=== PATIENT | female | born 1955 | race Caucasian/White ===

== ENCOUNTER 2020-03-04 13:49 | Emergency (ER) | payer BC ==
[~2020-03-04] VITALS: Ht 172.7 cm; Wt 89.5 kg
[2020-03-04] MEDS ORDERED: ziprasidone 20mg capsule PO SCH (15:05)
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
[2020-03-04 15:51] LABS: CLARITY,URINE CLEAR (Clear); COLOR,URINE STRAW (Yellow); GLUCOSE, URINE NEGATIVE (Neg); KETONES,URINE NEGATIVE (Neg); LEUKOCYTE ESTERASE ,URINE NEGATIVE (Neg); NITRITES, URINE NEGATIVE (Neg); OCCULT BLOOD,URINE NEGATIVE (Neg); PROTEIN,URINE NEGATIVE (Neg); UROBILINOGEN,URINE 0.2 E.U/dL (0.2-1.0)
[2020-03-04 15:53] LABS: UA COLLECTION TYPE VOIDED; URINE AMPHETAMINE SCREEN NEGATIVE (Neg); URINE BARBITUATE SCREEN NEGATIVE (Neg); URINE BENZODIAZEPINES SCREEN NEGATIVE (Neg); URINE CANNABINOID SCREEN NEGATIVE (Neg); URINE COCAINE SCREEN NEGATIVE (Neg); URINE METHADONE SCREEN NEGATIVE (Neg); URINE OPIATE SCREEN NEGATIVE (Neg); URINE PHENCYCLIDINE SCREEN NEGATIVE (Neg)
--- NOTE | 2020-03-04 15:55 | NUR ---
Pt transported to CT via wheelchair.
--- NOTE | 2020-03-04 16:05 | NUR ---
Pt returned from CT via wheelchair.
[2020-03-04] MEDS ORDERED: LURA40TA3 PO (16:09)
[2020-03-04] MEDS ORDERED: DULO20CA50 PO (16:09)
[2020-03-04 16:26] LABS: BASOPHILS # (AUTO) 0.1 X10'3 (0-0.2); EOSINOPHILS # (AUTO) 0.1 X10'3 (0-0.9); EOSINOPHILS % (AUTO) 0.7 % (0-6); HEMATOCRIT 35.4 % (35.0-45.0); HEMOGLOBIN 11.7 g/dl (12.0-16.0); LYMPHOCYTES # (AUTO) 0.9 X10'3 (1.1-4.8); LYMPHOCYTES % (AUTO) 10.1 % (21-51); MEAN CORPUSCULAR HGB CONC 32.9 g/dL (33.0-36.5); MEAN CORPUSCULAR VOLUME 88.2 FL (78-98); MEAN PLATELET VOLUME 7.5 FL (7.4-10.4); MONOCYTES # (AUTO) 0.4 X10'3 (0-0.9); MONOCYTES % (AUTO) 4.9 % (2-12); NEUTROPHILS % (AUTO) 83.3 % (42-75); PLATELET COUNT 490 X10'3 (140-440); RED BLOOD COUNT 4.01 X10'6 (4.20-5.60); WHITE BLOOD COUNT 8.4 X10'3 (4.5-11.0)
[2020-03-04 16:30] LABS: ALANINE AMINOTRANSFERASE 54 U/L (12-78); ALBUMIN 4.1 G/DL (3.4-5.0); ALKALINE PHOSPHATASE 116 IU/L (46-116); ANION GAP 12 (8-16); ASPARTATE AMINO TRANSFERASE 36 U/L (10-37); BILIRUBIN,TOTAL 0.4 MG/DL (0.1-1.0); BLOOD UREA NITROGEN 8 MG/DL (7-18); BUN/CREATININE RATIO 9.3 (6.6-38.0); CALCIUM 9.7 MG/DL (8.5-10.1); CHLORIDE 106 MMOL/L (99-107); CREATININE 0.86 MG/DL (0.40-0.90); GLUCOSE 104 MG/DL (70-104); POTASSIUM 3.6 MMOL/L (3.5-5.1); SODIUM 146 MMOL/L (135-145); TOTAL CARBON DIOXIDE 27.7 MMOL/L (24-32); TOTAL PROTEIN 8.4 G/DL (6.4-8.2); eGFR 67 ML/MIN
[2020-03-04 16:40] LABS: ETHANOL < 0.010 GM/DL (0.0-0.010)
[2020-03-04 16:41] LABS: ACETAMINOPHEN < 2.0 UG/ML (10-30)
--- NOTE | 2020-03-04 16:45 | NUR ---
Pt ambulated to room 8. Pt is really drowsy. Pt assisted into green scrubs by this RN. Pt then got in bed and went right to sleep.
--- NOTE | 2020-03-04 17:01 | NUR ---
Pt's significant other is Mark Harmon. He can be reached at [phone].
--- NOTE | 2020-03-04 17:05 | NUR ---
pt is supine in bed, regular breathing observed, no needs at this time
--- NOTE | 2020-03-04 18:53 | NUR ---
pt moved from the main ED unit to [facility] in RM 24. She ate most of her dinner. she has been pleasant and cooperative. Pt asking for more water. Pt has no other request or concerns at this time.
--- NOTE | 2020-03-04 21:10 | NUR ---
Packet to [facility]
--- NOTE | 2020-03-04 21:11 | NUR ---
pt awake now. asking where she is. she was told she is here for mental health evaluation. she is asking to talk to her aunt. she was instructed no calls or visiting at this time
--- NOTE | 2020-03-04 21:32 | NUR ---
the patient is calling out and presents as confused and disorganized. She ambulated to the bathroom but once there urinated all over herself and the floor. She was assisted in to changing into clean clothes. Home med rec sent to the pharmacy.
[2020-03-04] MEDS ORDERED: lurasidone 20mg tablet PO SCH (21:36)
--- NOTE | 2020-03-04 22:37 | NUR ---
The patient is constantly chatting to herself. She is not able to sleep
[2020-03-04] MEDS ORDERED: acetaminophen 325mg tablet PO ONE (23:15)
--- NOTE | 2020-03-04 23:17 | NUR ---
The patient up to use the bathroom. Complains of left hip pain and apparently had been self treating the pain with ice from her water pitcher. Provider made aware and order received. The patient ambulted to the bathroom with assistance.
--- NOTE | 2020-03-05 01:12 | NUR ---
The patient is up to use the bathroom. She is confused and disorganized. She is asking if she can leave although she has been told numerous times that she is on a 5150 hold. She appears to be responding to internal stimuli
[2020-03-05] MEDS ORDERED: quetiapine 100mg tablet PO STA (01:51)
--- NOTE | 2020-03-05 01:53 | NUR ---
The patient has been increasingly difficult to redirect. Attempting to walk off the unit. Asking repeatedly "can I call my baby daddy" Dr. Gonzalez made aware and orders received.
--- NOTE | 2020-03-05 02:01 | NUR ---
The patient has been taking excessive amounts of water and she has been redirected from this behaviors. She is delusional about needing to drink to flush out her body because she had a hip replacement. She was given PO medications and she stated "you the man" She again is asking to phone her "baby daddy" She was reminded that she was on a 5150 and that she would be going to a psychiatric facility from her and she gave the thumbs up sign.
--- NOTE | 2020-03-05 03:39 | NUR ---
The patient not sleeping soundly and is frequently awake and asking to call her and to get water.
--- NOTE | 2020-03-05 05:03 | NUR ---
The patient is hyperverbal and making grandiose and delusional statements.
--- NOTE | 2020-03-05 05:13 | NUR ---
PT BECOMING INCREASINGLY MANIC AND HYPERVERBAL. PT WANDERING AROUND UNIT INSISTING ON WATER AND ICE (PT HAS HAD MAX AMOUNT FOR DAY.) PT SINGING AND LAUGHING, DEMANDING OF STAFF, DELUSIONAL, AND THROWING OBJECTS AT STAFF. ATTEMPTED TO REDIRECT PT WITHOUT SUCCESS. EUSEBIO MCGHEE SPOKE WITH RENAN AMBROSIO REGARDING BEHAVIORS.
[2020-03-05] MEDS ORDERED: OLANZapine 5mg rapidly disint. tablet PO ONE (05:15)
--- NOTE | 2020-03-05 06:36 | NUR ---
EKG performed per order. Patient up to the bathroom, delusional. Believes her is here sleeping and she wants to talk to him when he wakes up.
[2020-03-05] MEDS ORDERED: duloxetine 20mg capsule.DR PO SCH (08:00)
--- NOTE | 2020-03-05 08:21 | NUR ---
Patient has been having excessive, pressured speech. Patient is redirectable. Pt. believes her is sleeping in this dept. Patient eating breakfast talking to herself.
--- NOTE | 2020-03-05 11:10 | NUR ---
Patient becoming irritable being on 5150, calls made to her friends to come and pick her up despite being told that she is not leaving. Patient now complaining about not owning guns in [place].
--- NOTE | 2020-03-05 12:35 | NUR ---
Patient's at bedside visiting. Patient is calm and cooperative.
--- NOTE | 2020-03-05 12:37 | NUR ---
Pt. c/o anxiety, Ativan 0.5 mg given with good effect. Patient is laying in bed with eyes closed.
--- NOTE | 2020-03-05 12:53 | NUR ---
Patient ambulating to restroom with FWW. Gait is steady. Pt. denies any SI. Awaiting placement.
--- NOTE | 2020-03-05 15:10 | NUR ---
Patient resting quietly with eyes shut.
--- NOTE | 2020-03-05 15:34 | NUR ---
pt on phone with her son.breaking primary at this time.
--- NOTE | 2020-03-05 15:54 | NUR ---
pt state that she want to exercise,pt given print out for yoga,pt refused to do as pt said i am not supposed to do these exercise.pt has pressured speech ,unable to control .
[2020-03-05 16:30] VITALS: BP 157/76
== END 2020-03-05 16:33 | disposition home or self-care (01) ==
LOC: ER 13:50
DX: F29 Unspecified psychosis not due to a substance or known physiological condition (principal); R41.0 Disorientation, unspecified; Z79.899 Other long term (current) drug therapy; F31.9 Bipolar disorder, unspecified; Z91.14 Patient's other noncompliance with medication regimen
CPT/HCPCS: 36415; 70450; 80053; 80305; 80320; 80329; 81003; 84443; 85025; 93005; 99285

== ENCOUNTER 2020-03-05 15:13 | Inpatient (IN) | payer BC ==
[~2020-03-05] VITALS: Ht 170.2 cm; Wt 90.9 kg
[~2020-03-05 15:13] MED LIST: DULO20CA50 PO; LURA40TA3 PO
[2020-03-05] MEDS ORDERED: haloperidol 5mg tablet PO PRN (16:50)
[2020-03-05] MEDS ORDERED: acetaminophen 325mg tablet PO PRN (16:50)
[2020-03-05] MEDS ORDERED: mag hydrox/Alum hydrox/simeth 30ml oral suspension PO PRN (16:50)
[2020-03-05] MEDS ORDERED: loperamide 2mg capsule PO PRN (16:50)
[2020-03-05] MEDS ORDERED: LORazepam 1 MG tablet PO PRN (16:50)
[2020-03-05] MEDS ORDERED: diphenhydrAMINE 25mg capsule PO PRN (16:50)
[2020-03-05] MEDS ORDERED: magnesium hydroxide 30ml (MOM) UD suspension PO PRN (16:50)
--- NOTE | 2020-03-05 17:41 | NUR ---
Admission Note: Pt admitted on a 5150 from ER overflow for grave disability. Pt has disorganized thought process, rajiv, psychosis and confusion. Pt lives at home with her who is supportive. Pt has h/o psychiatric hospitalizations. Pt had left hip ORIF in January of this year and is currently ambulating with a walker. Pt is noncompliant with admission process.
[2020-03-05 17:58] VITALS: BP 170/84
--- NOTE | 2020-03-05 17:59 | NUR ---
Patient became difficult during blood pressure. Patient tightened and tensed her body stating "I want my blood pressure to be high!" "I want my to know that is it high!" "I am so angry at him!" Addendum: 03/05/20 at 1804 by Magaly Mac RN Amended: Links added.
[2020-03-05] MEDS: lurasidone 20mg tablet PO SCH (18:19)
--- NOTE | 2020-03-05 18:21 | NUR ---
Patient was ordered 80 mg of Latuda. When pt. was handed her cup she took out 2 pills "I am only taking 40mg!" You can't make me take anything!" "I have the right to act the way I want!" "I don't want to be here!" "I am so angry!" This sign writer hand attempted to verbally deescalate patient, patient again tensed up and clenched her fists "I don't want to be here!" Patient perseverating on how she doesn't want to be here "I have a home and I have a friend where I can stay!" "I don't need to be here!"
[2020-03-05] MEDS: LORazepam 1 MG tablet PO PRN (19:18)
[2020-03-05] MEDS: acetaminophen 325mg tablet PO PRN (19:19)
--- NOTE | 2020-03-05 19:24 | NUR ---
Pt was in an argument on the phone then she threw the phone and said "woops! thats heavier than I thought!" Pts called and stated "I just got a call that you are refusing my toilet paper!" I assured him that we were not refusing his toilet paper. He then said "Well it sounds like shes not in the right place and that place is full of druggies, my is not a druggie and doesnt belong there! We are going to get a divorce over this!" Explained to pts that we are a [facility] and we will do our best to care for his . Pts said Ok, well just try to take better care of her!" Pt then came to the nurses station reporting that she was given toilet paper but it was not put in a "nice spot" for her, she states she "Pooped her pants" and "cant twist" to reach her toilet paper. Pt demanded to know what medicine she would be given, what the plan for her is, why she doesnt have ice, why we didnt call and ask her for clothing, and why we dont have a list of approved exercizes for her?. Explained to pt she will see the doctors sometime tomorrow and a treatment plan will be discussed. Pts nurse assisted her with underwear and toilet paper and administered meds and continues to work with her.
[2020-03-05 19:58] VITALS: BP 172/92
[2020-03-05] MEDS: LORazepam 1 MG tablet PO SCH (21:31)
[2020-03-05] MEDS ORDERED: oxyCODONE/APAP 5-325mg tablet PO PRN (21:55)
--- NOTE | 2020-03-05 23:42 | NUR ---
Nursing Progress Note: Legal hold: 5150 Client on involuntary hold for being gravely disabled Report received from Onel KAPLAN with use of SBAR Why are they here: The patient is a 64 year old female who was brought to [facility] for a crisis appointment by her after she began to exhibit manic symptoms. The patient reportedly has not been sleeping well. She presents as disorganized. Her moods are labile. She made over 50 calls to her friend in a short period of time. She was psychotic. She recently had a hip replacement surgery and she was not able to adequately manage her after care 2nd to her rajiv. 25 years ago she was a patient at [facility] after she became psychotic after the of her daughter. Approximately 10 years ago she was on the crisis stabilization unit. 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 Her stated that she took herself off her medications for bipolar disorder in September of this year. Assessment What has happened this shift: The patient has been up on the unit and in an agitated state. She is ambulated with her walker and is dressed in green hospital scrubs. She is disheveled and her hair is matted in the back. She reports she is very angry at her "for doing this to me. I sacrificed myself!" She is paranoid and distrustful of the staff. She denies hearing voices but then talks about hearing whispers in her ear. She stated that she received commands from her mirror which scared her something to the effect "who's going to " She is very irritable and is making many demands. She is difficult to understand what she is trying to relate at times because of her psychotic thinking her lack of judgement and insight. The patient did respond well with prn ativan and therapeutic interactions. S/I, H/I: NONE A/VH: The patient denies but talked about getting some kind of message from the mirror in her room. ADL's: The patient requires assistance 2nd to recent hip replacement Were meds taken: The patient did take prn ativan twice but she is hesitant to take medications. She apparently would only take half of the schedule. Any med S/E none noted Mental Status Exam Appearance: Appears stated age. Dressed in green hospital scrubs. She appears disheveled with uncombed hair. Eye contact: direct Behavior: agitated, resistive to care. Poor impulse control and threw a phone. Making repeated calls to her telling him how angry she is Speech: pressured. Mood: angry and irritable Affect: congruent to mood Thought process: Disorganized, psychotic Thought Content: anger towards her because she feels it is his fault she is here. Paranoid of staff Cognition: alert Insight: poor Judgment: poor Interventions PRN's used: ativan Therapeutic interventions: one to one with the patient to address each of her concerns. She was assisted to put on clean clothes. Medication education provided. Encouraged patient to take PRN trazodone as well as ativan but she declined. Restraints/seclusion/emergency medication: na Justification of Continued Inpatient Treatment: The patient is manic and agitated. Her family does not believe that they can provide the level of care that she needs. She recently had a hip replacement and she is unable to verbalize what her after care instructions were and believes that she was given instructions that were wrong for her.
--- NOTE | 2020-03-06 01:29 | NUR ---
The patient is having difficulty sleeping but not wanting to take medication. She reports she is getting messages from the picture that is on the wall. Offered to cover the picture with a sheet but she stated no that it would then look like a ghost. The patient is very paranoid of staff.
[2020-03-06] MEDS: acetaminophen 325mg tablet PO PRN ×2 (02:35→09:27)
[2020-03-06] MEDS: LORazepam 1 MG tablet PO PRN (03:19)
[2020-03-06] MEDS: LORazepam 1 MG tablet PO SCH ×3 (08:00→20:00)
[2020-03-06 08:31] VITALS: BP 150/90
[2020-03-06] MEDS ORDERED: acetaminophen w/codeine (30MG) #3 tablet PO SCH (14:00)
[2020-03-06] MEDS ORDERED: acetaminophen w/codeine (30MG) #3 tablet PO PRN ×2 (14:00→19:00)
--- NOTE | 2020-03-06 16:18 | NUR ---
Medication Not Scanned: Patient received her scheduled Tylenol w/Codeine #3 at 1410. Transaction was not saved and order was then changed to PRN. Pharmacy notified - [facility]. Next dose will be at 2009. Will endorse to next shift.
--- NOTE | 2020-03-06 16:25 | NUR ---
Nursing Progress Note: Legal hold: 5150 Expires 03/08 @ 2890 Client on involuntary status for GD Report received from EUSEBIO Pierre with use of SBAR Why are they here: The patient is a 64 year old female who was brought to [facility] for a crisis appointment by her after she began to exhibit manic symptoms. The patient reportedly has not been sleeping well. She presents as disorganized. Her moods are labile. She made over 50 calls to her friend in a short period of time. She was psychotic. She recently had a hip replacement surgery and she was not able to adequately manage her after care 2nd to her rajiv. 25 years ago she was a patient at [facility] after she became psychotic after the of her daughter. Approximately 10 years ago she was on the crisis stabilization unit. 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 Her stated that she took herself off her medications for bipolar disorder in September of this year. Assessment What has happened this shift: Received patient sitting in hallway at shift change. Patient presents with a flat, agitated affect. When this racebook writer greeted good morning patient responded "maybe for you!" Patient reports pain, but doesn't address level of pain, patient refused her PRN Percocet and Tylenol. "I don't take that medication!" Patient flip-flopped in regards to what pain medication she was taking at home. Patient is negative and condescending in her tone. Patient also refused her 0800 Ativan "I don't want to calm down!." "I want to feel what I feel!" When patient gets agitated she furrows her brows, clenches her teeth and fists. Dr. Navarrete saw patient this AM and reported to this racebook writer patient has sleep apnea and to place CPAP order. Order was placed along with order for physical therapy. On multiple occasions this racebook writer attempted to provide reassurance, unsuccessfully. Patient later saw this racebook writer I told you I wanted Tylenol! You just don't listen! Patient reported left hip pain 4/10, Tylenol was effective per patient decreased pain 2/10. Patient was overheard talking on the phone laughing at how she has been behaving, I am not being a good patient. Patient referred to her behaver when her blood pressure was being taken upon her admission to unit I told them I wanted my blood pressure to be high. Patient continues to resist care and voice her disapproval of her and staff. Patient's came to visit and drop off some personal belongings. Patient refused clothing he left and items were inventoried and placed in her locker. Patient was prescribed Tylenol w/codeine #3, administered at 1410 with effect. Patient reported pain level 4/10 in left hip. Interventions provided included ice packs and pillows. S/I, H/I: Patient denies both. A/VH: Patient denies both "Who do you think I am!" ADL's: The patient requires assistance 2nd to recent hip replacement. Elevated commode in bathroom. Uses FWW. Were meds taken: Patient refused 0800 and 1400 scheduled Ativan. "I only take it at night!" Any med S/E: None observed or reported. Mental Status Exam Appearance: Appears stated age. Dressed in green hospital scrubs. She appears disheveled with uncombed hair. Eye contact: Intense. Behavior: Agitated, resistive to care. Angry because she is here "My is weak!" Speech: Pressured, hyperverbal. Mood: Angry, labile Affect: Congruent to mood Thought process: Tangential, perseverating, paranoid of staff. Thought Content: Angry and frustration being here. Cognition: A&O x2 Insight: Poor Judgment: Poor Interventions PRN's used: None - refused Therapeutic interventions: 1:1 assessment, verbally redirected patient, boundary setting, medication administration/eduction/monitoring, assistance with ADL's, pain control with medication and ice packs, Q15 min. safety checks. Restraints/seclusion/emergency medication: N/A Justification of Continued Inpatient Treatment: The patient is manic and agitated. Her family does not believe that they can provide the level of care that she needs. Patient requires an interrupption of current crisis, due to stopping her pych medications in a safe therapeutic environment.
[2020-03-06] MEDS: lurasidone 20mg tablet PO SCH (18:01)
--- NOTE | 2020-03-06 18:15 | NUR ---
Patient c/o of left hip pain and requested her PRN early "the one tablet of T3 (as she calls it) isn't working." Received order from JOSE Siegel to increase Tylenol w/Codeine #3 to two tabs q6h PRN.
[2020-03-06] MEDS: docusate sod 100mg capsule PO SCH (19:59)
[2020-03-06] MEDS: traZODone 50mg tablet PO PRN (19:59)
[2020-03-06 20:00] VITALS: BP 125/74
--- NOTE | 2020-03-06 23:56 | NUR ---
Nursing Progress Note: Legal hold: 5150 Expires 03/08 @ 6934 Client on involuntary status for GD Report received from EUSEBIO Rae with use of SBAR Why are they here: The patient is a 64 year old female who was brought to [facility] for a crisis appointment by her after she began to exhibit manic symptoms. The patient reportedly has not been sleeping well. She presents as disorganized. Her moods are labile. She made over 50 calls to her friend in a short period of time. She was psychotic. She recently had a hip replacement surgery and she was not able to adequately manage her after care 2nd to her rajiv. 25 years ago she was a patient at [facility] after she became psychotic after the of her daughter. Approximately 10 years ago she was on the crisis stabilization unit. 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 Her stated that she took herself off her medications for bipolar disorder in September of this year. Assessment What happened this shift: Patient is self isolating in bed, mid fowlers position. Patient is oriented X4, she is warm and dry with good color. Patient exhibits linear thought. Patient states she was changed to Tylenol with codeine for her hip pain, she tells this lyric writer that percet contributed to her recent thought imbalance, "that's why I'm here." Patient does not exhibit any pain behavior. She is up and out of bed without difficulty, she uses a walker to go to the bathroom with out problem. Patient states she has been tired all day. The patient elates that another reason she is here is because "my can't handle me." Patient denies H/I, S/I, or any hallucinations. She was reported labile earlier on day shift, she is cooperative with lyric writer. Patient does make sexually promiscuous statements at times. The patient jokes at times with her roommate and this lyric writer too. Later in the evening patient uses her walker to ambulate to the nursing station to socialize. Patient is supplied with a fresh ice pack, ice water too. Patient was advised she could have Tylenol with codeine if needed. As of this writing patient has not needed Rx pain medications. S/I, H/I: Denies. A/VH: Denies. ADL's: The patient requires assistance 2nd to recent hip replacement. Elevated commode in bathroom. Uses FWW. Were meds taken: Patient is compliant with nigh time medications. Any med S/E: None observed or reported. Mental Status Exam Appearance: Appears stated age. Dressed in green hospital scrubs. She appears disheveled with uncombed hair. Eye contact: Good eye contact. . Behavior: Cooperative. Speech: Normal rate, rhythm, and tone. Mood: Minor agitation. Affect: Flat affect. Thought process: Linear, occasionally tangential. Thought Content: Some frustration about being here. . Cognition: Oriented X3, not completely to situation. Insight: Poor. Judgment: Poor. Interventions PRN's used: None - refused Therapeutic interventions: 1:1 assessment, verbally redirected patient, boundary setting, medication administration/eduction/monitoring, assistance with ADL's, pain control with medication and ice packs, Q15 min. safety checks. Restraints/seclusion/emergency medication: N/A Justification of Continued Inpatient Treatment: The patient is manic and agitated. Her family does not believe that they can provide the level of care that she needs. Patient requires an interrupption of current crisis, due to stopping her pych medications in a safe therapeutic environment.
[2020-03-07] MEDS: traZODone 50mg tablet PO PRN ×2 (00:52→20:28)
[2020-03-07] MEDS: acetaminophen w/codeine (30MG) #3 tablet PO PRN ×3 (00:52→15:13)
--- NOTE | 2020-03-07 00:54 | NUR ---
Patient ambulated to nursing station. She requests pain medication for her left hip pain at the surgical site. Patient states she is having trouble sleeping too. Patient states she is willing to try Trazadone. Both were administered.
[2020-03-07] MEDS: docusate sod 100mg capsule PO SCH ×2 (07:48→20:28)
[2020-03-07] MEDS: LORazepam 1 MG tablet PO SCH ×3 (07:52→20:28)
[2020-03-07 08:00] VITALS: BP 118/67
[2020-03-07 08:30] LABS: CHOL/HDL RATIO 2.9 (0.00-4.99); CHOLESTEROL 155 MG/DL (0-200); HDL CHOLESTEROL 53 MG/DL (35-60); LDL CHOLESTEROL 76 MG/DL (50-100); TRIGLYCERIDES 121 MG/DL (20-135)
[2020-03-07 08:34] LABS: HEMOGLOBIN A1C 5.8 % (4.5-6.2)
--- NOTE | 2020-03-07 10:00 | NUR ---
Group Therapy: Process Group This Clinicians goals for this process group were as follows: (1) Ask scaling questions about patients current anxiety, depression, and irritability symptoms as a check-in. (2) Share psychoeducation about emotional relaxation techniques with patients, including information on: mindfulness, meditation controlled breathing, progressive muscle relaxation, guided visualization. (3) Model and practice controlled breathing, progressive muscle relaxation, and guided visualization with patients within the group milieu. (4) Process patients comments and reflections on the before-mentioned activities after they have participated in them. Patient identified experiencing the following levels of anxiety, depression, and anger/irritability while present in the group milieu. Anxiety: 09/28 Depression: 09/28 Anger/irritability: 10/29 Patient presented as open and cooperative within the group milieu. Patient was dressed in backus hospital scrubs. Patient presented as verbally engaged and nonobtrusive within the group milieu. On one occasion, Patient verbalized being impressed by her roommate, as she had been told by hear that she had memorized over, "One hundred passage of scripture from the Bible." This Clinician validated the importance of having spiritual support, but made attempts to redirect the conversation back to pyschoeducation, modeling and practice of controlled breathing, progressive muscle relaxation, and guided visualization. Joel Prather MA, PRISCILA Addendum: 03/10/20 at 0805 by Joel Prather SS Amended: Links added.
[2020-03-07] MEDS: ibuprofen 200mg tablet PO PRN ×2 (13:05→20:29)
--- NOTE | 2020-03-07 15:47 | NUR ---
PSYCHOSOCIAL ASSESSMENT Amada is a 64 y/o female who was placed on 5150 after she presented as a walk-in at [facility] with her . She presented as labile, with elevated mood, hyper-verbal, disorganized, confused, tangential, tends to ramble and had poor sleep.Amada had recent hip surgery (February 14) and reported she believes that the oxy may have contributed to her recent manic phase. She reported she is at the hospital because her "can't handle me". She reported she sees Rene Tapia at the [facility] for her medications. She reported she has been diagnosed with Bipolar. She reported her first hopsitalization was in 1986 after she had a "breakdown" after her grandfather . She reported she was hospitalized at [facility] in 1994 and stayed at the Crisis Unit in 2009. She denied any suicide attempts. She denied any current SI or HI. 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 Amada was cooperative with the assessment. She was somewhat tangential and circumstantial with slightly elevated mood. She presented with paranoid delusions about [facility] staff being FBI. She was also paranoid about the ED Overflow staff being "actors" and made several paranoid statements regarding her stay in the Overflow before being admitted to [facility]. Amada reported she would like to stay with her friend, Libby, upon discharge because she feels like Libby can take better care of her. Amada had been staying with Libby before getting hospitalized and Amada was unable to manage at her home and was too disruptive. Left message for Amada's , Mark (ph# [phone]) to discuss discharge planning. PRISCILA Park Addendum: 03/07/20 at 1551 by Ana PARIKH Amended: Links added.
--- NOTE | 2020-03-07 16:23 | NUR ---
Nursing Progress Note: Legal hold: 5150 Expires 03/08 @ 6839 Client on involuntary status for GD Report received from EUSEBIO Stone with use of SBAR Why are they here: The patient is a 64 year old female who was brought to [facility] for a crisis appointment by her after she began to exhibit manic symptoms. The patient reportedly has not been sleeping well. She presents as disorganized. Her moods are labile. She made over 50 calls to her friend in a short period of time. She was psychotic. She recently had a hip replacement surgery and she was not able to adequately manage her after care 2nd to her rajiv. 25 years ago she was a patient at [facility] after she became psychotic after the of her daughter. Approximately 10 years ago she was on the crisis stabilization unit. 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 Her stated that she took herself off her medications for bipolar disorder in September of this year. Assessment What has happened this shift: Patient up and walking the halls listening to head set at shift change. Patient presents as pleasant and less agitated. Patient reported left hip pain 3/10 and requested her Tylenol w/codeine, administered with effect. Patient was compliant with 1:1 assessment, refused 0800 and 1400 scheduled Ativan 1mg. Patient was assisted with a bed bath and given clean scrubs. Patient is apologetic regarding her behavior the last couple of days. Patient is talkative and less negative in her thought process. Patient presents as hypomanic, elevated mood, hyperverbal speech. Patient c/o of breakthrough pain, received order for Motrin 600 TID, administered with effect. Patient's was in for a visit, visitation seemed to go well; no outburst from patient. Physical therapy was here and evaluated patient and given home exercises. Patient to continue with use of FWW and elevated commode. Pt's 5150 expires tomorrow. S/I, H/I: Patient denies both. A/VH: Patient denies both. ADL's: The patient requires assistance 2nd to recent hip replacement. Elevated commode in bathroom. Uses FWW. Received bed bath and scrub change this shift. Were meds taken: Patient declined 0800 and 1400 scheduled Ativan. Any med S/E: None observed or reported. Mental Status Exam Appearance: Freshly showered, wearing clean green unit scrubs. Elderly female looks stated age. Eye contact: Good Behavior: Cooperative, apologetic, pacing napoles with FWW. Speech: Clear, less hyperverbal. Mood: Elevated Affect: Congruent to mood Thought process: Tangential, goal oriented. Thought Content: Discharge. Cognition: A&O x2 Insight: Poor Judgment: Poor Interventions PRN's used: Tylenol with codeine x2 and Motrin x1 Therapeutic interventions: 1:1 assessment, patient, boundary setting, active listening, therapeutic conversation, medication administration/eduction/monitoring, assistance with ADL's, pain control with medication and ice packs, Q15 min. safety checks. Restraints/seclusion/emergency medication: N/A Justification of Continued Inpatient Treatment: The patient is manic and agitated. Her family does not believe that they can provide the level of care that she needs. Patient requires an interruption of current crisis, due to stopping her pych medications in a safe therapeutic environment.
[2020-03-07] MEDS: lurasidone 20mg tablet PO SCH (18:19)
[2020-03-07 20:00] VITALS: BP 111/70
--- NOTE | 2020-03-08 00:16 | NUR ---
Patient awoke from sleep and began screaming loudly. When asked what is going on patient doesn't elaborate. Patient then ambulated down hallway with her walker. She complained of her left hip pain, she request tylenol #3's. This was given along with Benadryl 25 mg. Patient refused the full 50 mg Benadryl PRN. Patient then returned to bed in no distress.
[2020-03-08] MEDS: acetaminophen w/codeine (30MG) #3 tablet PO PRN ×2 (00:43→10:44)
--- NOTE | 2020-03-08 02:20 | NUR ---
Nursing Progress Note: Legal hold: 5150 Expires 03/08 @ 0740 Client on involuntary status for GD Report received from EUSEBIO Green with use of SBAR Why are they here: The patient is a 64 year old female who was brought to [facility] for a crisis appointment by her after she began to exhibit manic symptoms. The patient reportedly has not been sleeping well. She presents as disorganized. Her moods are labile. She made over 50 calls to her friend in a short period of time. She was psychotic. She recently had a hip replacement surgery and she was not able to adequately manage her after care 2nd to her rajiv. 25 years ago she was a patient at [facility] after she became psychotic after the of her daughter. Approximately 10 years ago she was on the crisis stabilization unit. 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 Her stated that she took herself off her medications for bipolar disorder in September of this year. Assessment: This patient was social and well oriented at beginning of shift. Patient ate dinner, socialized with others. she interviewed with JOSE Olmos. Patient is ambulatory without assistance. Patient is compliant with medications. Patient presents as linear in thought. Late in shift patient awoke screaming. Patient states that she was having nightmares. The patient was given tylenol #3's for her hip soreness, she was offered Benadryl but only took 25 mg, not the Rx suggested dose. Patient is demanding of tech's. Patient was supplied with fresh water which she spilled. Later, patient singing in her room. Patient has multiple complaints. Patient requests and will be given Ativan. The reported plan is to discharge patient home on the day shift? Patient also demanded multiple changes of ice pack, ice water in pitcher be placed in cup, patient states she wants to keep medication cup as a souvenir. Patient hits call button many times during the night. S/I, H/I: Denies. A/VH: Denies. ADL's: The patient requires assistance 2nd to recent hip replacement. Elevated commode in bathroom. Uses FWW. Were meds taken: Patient is compliant with nigh time medications. Any med S/E: None observed or reported. Mental Status Exam Appearance: Appears stated age. Dressed in green hospital scrubs. She appears disheveled with uncombed hair. Eye contact: Good eye contact. . Behavior: Demanding. Speech: Normal rate, rhythm, and tone. Mood: Very needy.. Affect: Flat affect. Thought process: Linear, occasionally tangential. Thought Content: Some frustration about being here. . Cognition: Oriented X3, not completely to situation. Insight: Poor. Judgment: Poor. Interventions PRN's used: None - refused Therapeutic interventions: 1:1 assessment, verbally redirected patient, boundary setting, medication administration/eduction/monitoring, assistance with ADL's, pain control with medication and ice packs, Q15 min. safety checks. Restraints/seclusion/emergency medication: N/A Justification of Continued Inpatient Treatment: The patient is manic and agitated. Her family does not believe that they can provide the level of care that she needs. Patient requires an interrupption of current crisis, due to stopping her pych medications in a safe therapeutic environment.
[2020-03-08] MEDS: LORazepam 1 MG tablet PO PRN (02:43)
[2020-03-08] MEDS: docusate sod 100mg capsule PO SCH (07:23)
[2020-03-08] MEDS: LORazepam 1 MG tablet PO SCH ×2 (07:23→13:00)
[2020-03-08 08:00] VITALS: BP 115/68
--- NOTE | 2020-03-08 15:51 | NUR ---
Nursing Progress Note: Link Legal hold: 5150 Expires 03/08 @ 4922 Client on involuntary status for GD Report received from Jennifer Fernandez RN with use of SBAR Why are they here: The patient is a 64 year old female who was brought to [facility] for a crisis appointment by her after she began to exhibit manic symptoms. The patient reportedly has not been sleeping well. She presents as disorganized. Her moods are labile. She made over 50 calls to her friend in a short period of time. She was psychotic. She recently had a hip replacement surgery and she was not able to adequately manage her after care 2nd to her rajiv. 25 years ago she was a patient at [facility] after she became psychotic after the of her daughter. Approximately 10 years ago she was on the crisis stabilization unit. 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 Her stated that she took herself off her medications for bipolar disorder in September of this year. Assessment: This client was awake and amicable to assessment and medications this am. Client tends to be demanding as exibited by the statement, You need to empty my bedside toilet, I used it. She remains labile and disorganized. She ambulates using a walker and her gait is steady. Client had a visit from her today and the event went well. Client asked for and was given Tylenol #3, 2 tabs per orders with good effect.. Lunch was eaten in the dining room with select peers. There have been no behavioral episodes as of this writing at 1325 hours. Client is anticipating a discharge today and looks forward to going home. S/I, H/I: Denies. A/VH: Denies. ADL's: The patient is able to conduct her ADLs on her own without assistance. Were meds taken: Patient refused am Ativan but took her other am medication. Any med S/E: None observed or reported. Mental Status Exam Appearance: Appears stated age. Dressed in green hospital scrubs. She appears disheveled with uncombed hair. Eye contact: Good eye contact. . Behavior: Demanding. Speech: Normal rate, rhythm, and tone. Mood: Very needy.. Affect: Flat affect. Thought process: Linear, occasionally tangential. Thought Content: Some frustration about being here. . Cognition: Oriented X3, not completely to situation. Insight: Poor. Judgment: Poor. Interventions PRN's used: Tylenol #3 Therapeutic interventions: 1:1 assessment, verbally redirected patient, boundary setting, medication administration/eduction/monitoring, assistance with ADL's, pain control with medication and ice packs, Q15 min. safety checks. Restraints/seclusion/emergency medication: N/A Justification of Continued Inpatient Treatment: The patient is manic and agitated. Her family does not believe that they can provide the level of care that she needs. Patient requires an interruption of current crisis, due to stopping her pych medications in a safe therapeutic environment.
[2020-03-08] MEDS ORDERED: PRAZ1CAP5 PO (16:27)
[2020-03-08] MEDS ORDERED: LURA80TA3 PO (16:27)
--- NOTE | 2020-03-08 16:46 | NUR ---
Discharge note: Client is discharging at 1715 hours today and will go home with family.Client condition has improved since admission. All belongings were sent home with client. Client will make a follow up appointment with her provider. All discharge paperwork has been completed and client has received all her belongings. Discharge photo taken and placed in chart.Client understands conditions of discharge and will utilize information given to her at discharge as needed. She is alert and oriented x 4 and understands all conditions of her discharge.
--- NOTE | 2020-03-08 17:46 | NUR ---
Client discharging to home at 1715 hours in the company of her . All belongings were returned to patient satisfaction. Client condition has improved since admission and she readily contracts for safe behaviors.Photo taken of prior surgical encounter of left hip.Client will fill her prescriptions at her Pharmacy and client stated that she will utilize information given at discharge in the event of any further issues at home. All discharge documents completed and patient departed this unit at 1715 hours.
[2020-03-08] MEDS ORDERED: prazosin 1mg capsule PO SCH (21:00)
== END 2020-03-08 17:15 | disposition home or self-care (01) | DRG 885 ==
LOC: ADULT MH 15:13
PROVIDERS: ADMIT Psychiatry & Neurology Psychiatry; ATTEND Psychiatry & Neurology Psychiatry
DX: F31.9 Bipolar disorder, unspecified (principal); Z96.642 Presence of left artificial hip joint; F60.9 Personality disorder, unspecified; F51.4 Sleep terrors [night terrors]; G47.30 Sleep apnea, unspecified; Z81.8 Family history of other mental and behavioral disorders; Z79.899 Other long term (current) drug therapy
CPT/HCPCS: 36415; 80061; 83036; 87081; 94760; 97110; 97161; 97530; 99285; Q0163